=== PATIENT | female | born 1985 | race Caucasian/White ===

== ENCOUNTER 2016-07-06 15:05 | Emergency (ER) | payer SELFPAY ==
[~2016-07-06] VITALS: Ht 157.5 cm; Wt 81.6 kg
[2016-07-06] MEDS ORDERED: ACETAMINOPHEN ES 500 MG TABLET PO ONE (15:30)
[2016-07-06] MEDS ORDERED: ACETAMINOPHEN ES 500 MG TABLET ONE (15:40)
--- NOTE | 2016-07-06 16:03 | NUR ---
Patient discharged to home in stable conditon. Written and verbal after care instructions given. Patient verbalizes understanding of instructions. No further questions or concerns noted prior on leaving the ED
[2016-07-06 16:04] VITALS: BP 110/72
== END 2016-07-06 16:05 | disposition home or self-care (01) ==
LOC: ER 15:05
DX: J06.9 Acute upper respiratory infection, unspecified (principal)
CPT/HCPCS: 99282; A4663

== ENCOUNTER 2017-10-03 21:18 | Emergency (ER) | payer SELFPAY ==
[~2017-10-03] VITALS: Ht 160 cm; Wt 83.9 kg
[2017-10-03] MEDS ORDERED: WEIGHT LOSS MED (21:34)
[2017-10-03] MEDS ORDERED: ONDANSETRON 4 MG/2 ML VIAL IV ONE (21:45)
[2017-10-03] MEDS ORDERED: KETOROLAC TROMETHAMINE 30 MG INJ IVP ONE (21:45)
[2017-10-03] MEDS ORDERED: HYDROMORPHONE 1 MG/1 ML DISP.SYRIN IV ONE (21:45)
[2017-10-03] MEDS ORDERED: KETOROLAC TROMETHAMINE 30 MG INJ ONE (22:07)
[2017-10-03] MEDS ORDERED: HYDROMORPHONE 2 MG/1 ML DISP.SYRIN ONE (22:07)
[2017-10-03] MEDS ORDERED: ONDANSETRON 4 MG/2 ML VIAL ONE (22:08)
[2017-10-03 22:13] LABS: BASOPHILS # (AUTO) 0.1 K/uL (0.0-8.0); BASOPHILS % (AUTO) 0.5 % (0.0-2.0); EOSINOPHILS # (AUTO) 0.2 K/uL (0.0-0.7); EOSINOPHILS % (AUTO) 1.8 % (0.0-7.0); HEMATOCRIT 40.8 % (31.2-41.9); HEMOGLOBIN 14.2 g/dL (10.9-14.3); LYMPHOCYTES # (AUTO) 2.1 K/uL (20.0-40.0); MEAN CORPUSCULAR HEMOGLOBIN 30.7 uug (24.7-32.8); MEAN CORPUSCULAR HGB CONC 35 g/dL (32.3-35.6); MEAN CORPUSCULAR VOLUME 88.2 fL (75.5-95.3); MONOCYTES # (AUTO) 0.5 K/uL (2.0-10.0); MONOCYTES % (AUTO) 4.3 % (0.0-11.0); NEUTROPHILS # (AUTO) 8.1 K/uL (1.8-8.9); NEUTROPHILS % (AUTO) 74.4 % (38.5-71.5); PLATELET COUNT (AUTO) 322 K/uL (179-408); RED BLOOD CELL COUNT(AUTO) 4.62 MIL/uL (3.63-4.92); WHITE BLOOD COUNT (AUTO) 10.9 K/uL (3.8-11.8)
[2017-10-03 22:20] LABS: CREATININE 0.9 mg/dL (0.6-1.3); POTASSIUM 3.3 mmol/L (3.5-5.1)
[2017-10-03 22:26] LABS: BILIRUBIN,DIRECT 0.1 mg/dL (0.0-0.2); BILIRUBIN,TOTAL 0.6 mg/dL (0.2-1.0); TOTAL PROTEIN, SERUM 8.6 g/dL (6.4-8.2)
--- NOTE | 2017-10-03 23:10 | NUR ---
IV removed. Catheter intact and site benign. Pressure and 4x4 gauze applied to site. No bleeding noted.
--- NOTE | 2017-10-03 23:13 | NUR ---
Patient discharged to home in stable conditon. Written and verbal after care instructions given. Patient verbalizes understanding of instructions. Pt ambulated out of ER in steady gait. All belongings with pt. VSS. NAD noted. Pt has family members to drive her home.
[2017-10-03 23:15] VITALS: BP 114/74
== END 2017-10-03 23:16 | disposition home or self-care (01) ==
LOC: ER 21:19
DX: G89.4 Chronic pain syndrome (principal); M54.6 Pain in thoracic spine
CPT/HCPCS: 36415; 71045; 83690; 84703; 85025; 85730; 93005; A4663; J1170; J1885; J2405

== ENCOUNTER 2019-04-30 12:53 | Emergency (ER) | payer MEDICAID, OTHER ==
[~2019-04-30] VITALS: Ht 160 cm; Wt 81.6 kg
[~2019-04-30 12:53] MED LIST: WEIGHT LOSS MED
[2019-04-30] MEDS ORDERED: KETOROLAC TROMETHAMINE 30 MG INJ ONE (13:28)
[2019-04-30] MEDS ORDERED: KETOROLAC TROMETHAMINE 30 MG INJ IM ONE (13:30)
--- NOTE | 2019-04-30 13:43 | NUR ---
PT WAS EVALUATED BY DR DOUGLAS. PT WAS D/C'd TO HOME D/C INSTRUCTIONS GIVEN TO THE PT.
[2019-04-30 13:45] VITALS: BP 136/77
== END 2019-04-30 13:46 | disposition home or self-care (01) ==
LOC: ER 12:53
DX: M54.9 Dorsalgia, unspecified (principal)
CPT/HCPCS: 96372; 99283; J1885; A4663

== ENCOUNTER 2020-03-17 13:56 | Emergency (ER) | payer MEDICAID, OTHER ==
[~2020-03-17] VITALS: Ht 160 cm; Wt 80.7 kg
[2020-03-17] MEDS ORDERED: KETOROLAC TROMETHAMINE 15 MG INJ IVP ONE (14:30)
[2020-03-17] MEDS ORDERED: PANTOPRAZOLE SODIUM 40 MG VIAL IV ONE (14:30)
[2020-03-17] MEDS ORDERED: PANTOPRAZOLE SODIUM 40 MG VIAL ONE (14:39)
[2020-03-17] MEDS ORDERED: KETOROLAC TROMETHAMINE 30 MG INJ ONE (14:39)
[2020-03-17 15:00] LABS: CREATININE 0.7 mg/dL (0.6-1.3)
[2020-03-17 15:03] LABS: BASOPHILS % (AUTO) 0.6 % (0.0-2.0); EOSINOPHILS # (AUTO) 0.4 K/uL (0.0-0.7); EOSINOPHILS % (AUTO) 4.7 % (0.0-7.0); HEMOGLOBIN 14.3 g/dL (10.9-14.3); LYMPHOCYTES # (AUTO) 2.1 K/uL (20.0-40.0); LYMPHOCYTES % (AUTO) 26.3 % (20.5-51.5); MEAN CORPUSCULAR HEMOGLOBIN 29.5 uug (24.7-32.8); MEAN CORPUSCULAR HGB CONC 33 g/dL (32.3-35.6); MEAN CORPUSCULAR VOLUME 88.5 fL (75.5-95.3); MONOCYTES # (AUTO) 0.4 K/uL (2.0-10.0); MONOCYTES % (AUTO) 5.6 % (0.0-11.0); NEUTROPHILS % (AUTO) 62.8 % (38.5-71.5); PLATELET COUNT (AUTO) 315 K/uL (179-408); RED BLOOD CELL COUNT(AUTO) 4.86 MIL/uL (3.63-4.92)
[2020-03-17] MEDS ORDERED: HYDROCODONE/APAP 5-325MG TABLET ONE (15:44)
[2020-03-17] MEDS ORDERED: HYDROCODONE/APAP 5-325MG TABLET PO ONE (15:45)
--- NOTE | 2020-03-17 15:51 | NUR ---
Removed IV intact, site okay, bandaged. Gave pt RX and d/c instructions, pt verbalized understanding.
== END 2020-03-17 15:54 | disposition home or self-care (01) ==
LOC: ER 14:08
DX: R07.1 Chest pain on breathing (principal); M54.12 Radiculopathy, cervical region; R00.0 Tachycardia, unspecified; F17.200 Nicotine dependence, unspecified, uncomplicated; G89.4 Chronic pain syndrome
CPT/HCPCS: 36415; 71045; 80048; 84484; 84702; 85025; 85379; 93005; 96374; 96375; 99285; C9113; J1885; 70030-TC; A4663

== ENCOUNTER 2021-12-16 12:05 | Emergency (ER) | payer OTHER ==
[~2021-12-16] VITALS: Ht 160 cm; Wt 83.9 kg
[2021-12-16] MEDS ORDERED: METOCLOPRAMIDE HCL 10 MG/2 ML VIAL IV ONE (12:45)
[2021-12-16] MEDS ORDERED: ACETAMINOPHEN 325 MG TABLET PO ONE (12:45)
[2021-12-16 13:01] LABS: HEMATOCRIT 36.2 % (31.2-41.9); MEAN CORPUSCULAR HEMOGLOBIN 29.8 uug (24.7-32.8); MEAN CORPUSCULAR VOLUME 86.3 fL (75.5-95.3); PLATELET COUNT (AUTO) 307 K/uL (179-408)
[2021-12-16 13:11] LABS: CARBON DIOXIDE 27 mmol/L (21-32); CHLORIDE 104 mmol/L (98-107); CREATININE 0.7 mg/dL (0.6-1.3); GLUCOSE 94 mg/dL (74-106); POTASSIUM 4.2 mmol/L (3.5-5.1); UREA NITROGEN, BLOOD 7 mg/dL (7-18)
[2021-12-16] MEDS ORDERED: METOCLOPRAMIDE HCL 10 MG/2 ML VIAL ONE (13:27)
[2021-12-16] MEDS ORDERED: ACETAMINOPHEN 325 MG TABLET ONE (13:27)
[2021-12-16] MEDS ORDERED: METOCLOPRAMIDE HCL 10 MG TABLET ONE (13:36)
[2021-12-16] MEDS ORDERED: ACET-2154 PO ×2 (13:44→14:11)
[2021-12-16] MEDS ORDERED: HYDR25CA PO ×2 (13:44→14:11)
[2021-12-16] MEDS ORDERED: METOCLOPRAMIDE HCL 10 MG TABLET PO ONE (13:45)
--- NOTE | 2021-12-16 13:45 | NUR ---
Administered 650 Tylenol (prior to order cancellation) and 10 mg Reglan PO.
[2021-12-16] MEDS ORDERED: DEXAMETHASONE SOD PHOSPHATE 4 MG INJ IM ONE (14:15)
[2021-12-16] MEDS ORDERED: LIDOCAINE 5% PATCH TD ONE ×2 (14:15→14:28)
[2021-12-16 14:23] LABS: *URINE HCG, QUAL NEGATIVE (NEGATIVE)
[2021-12-16] MEDS ORDERED: KETOROLAC TROMETHAMINE 30 MG INJ ONE (14:28)
[2021-12-16] MEDS ORDERED: DEXAMETHASONE SOD PHOSPHATE 4 MG INJ ONE (14:28)
[2021-12-16 14:50] VITALS: BP 105/49
== END 2021-12-16 14:54 | disposition home or self-care (01) ==
LOC: ER 12:05
DX: R20.2 Paresthesia of skin (principal); M79.642 Pain in left hand; M79.641 Pain in right hand; F41.9 Anxiety disorder, unspecified; R07.89 Other chest pain; G89.4 Chronic pain syndrome; Z88.6 Allergy status to analgesic agent; R94.31 Abnormal electrocardiogram [ECG] [EKG]
CPT/HCPCS: 99285; 71045; 80048; 84703; 85025; 84484; 36415; 93005; 96372; J1100; J2765; A4663; J1885; J8597

== ENCOUNTER 2021-12-25 23:36 | Emergency (ER) | payer OTHER ==
[~2021-12-25] VITALS: Ht 160 cm; Wt 81.6 kg
[~2021-12-25 23:36] MED LIST changes: +ACET-2154 PO; +HYDR25CA PO
--- NOTE | 2021-12-26 | NUR ---
Dr. Oquendo at bedside. MSE in progress.
[2021-12-26 00:37] LABS: MEAN CORPUSCULAR HEMOGLOBIN 29.5 uug (24.7-32.8); MEAN CORPUSCULAR VOLUME 87.5 fL (75.5-95.3); PLATELET COUNT (AUTO) 361 K/uL (179-408)
[2021-12-26 00:46] LABS: CARBON DIOXIDE 29 mmol/L (21-32); CHLORIDE 103 mmol/L (98-107); CREATININE 0.8 mg/dL (0.6-1.3); GLUCOSE 113 mg/dL (74-106); POTASSIUM 4.1 mmol/L (3.5-5.1); UREA NITROGEN, BLOOD 10 mg/dL (7-18)
[2021-12-26 00:58] LABS: ALANINE AMINOTRANSFERASE 53 U/L (14-59); ALKALINE PHOSPHATASE 82 U/L (50-136); ASPARTATE AMINOTRANSFERASE 28 U/L (15-37); BILIRUBIN,DIRECT 0.1 mg/dL (0.0-0.2); BILIRUBIN,TOTAL 0.4 mg/dL (0.2-1.0); TOTAL PROTEIN, SERUM 7.9 g/dL (6.4-8.2)
[2021-12-26 00:59] LABS: THYROID STIMULATING HORMONE 0.699 mIU/mL (0.358-3.740)
--- NOTE | 2021-12-26 02:15 | NUR ---
Patient discharged to home in stable condition. A/O x4. NAD noted. Ambulatory with steady gait. All belongins with patient. Written and verbal after care instructions given. Patient verbalizes understanding of instructions. Stressed follow up or return to ER for worsening s/s.
[2021-12-26 02:20] VITALS: BP 129/76
== END 2021-12-26 02:15 | disposition home or self-care (01) ==
LOC: ER 23:43
DX: R00.2 Palpitations (principal); G89.4 Chronic pain syndrome; E66.9 Obesity, unspecified; Z68.31 Body mass index [BMI] 31.0-31.9, adult
CPT/HCPCS: 36415; 83735; 84443; 84484; 85025; 93005; A4663

== ENCOUNTER 2023-08-29 21:38 | Emergency (ER) | payer OTHER ==
[~2023-08-29] VITALS: Ht 160 cm; Wt 88.5 kg
[~2023-08-29 21:38] MED LIST changes: +GABA-532 PO; +NITR100C6 PO
[2023-08-29] MEDS ORDERED: ACETAMINOPHEN 500 MG TABLET ONE (22:21)
[2023-08-29] MEDS ORDERED: DIAZEPAM 5 MG TABLET ONE (22:22)
[2023-08-29] MEDS: DIAZEPAM 2 MG TABLET PO ONE (22:24)
[2023-08-29] MEDS: ACETAMINOPHEN 325 MG TABLET PO ONE (22:28)
[2023-08-29] MEDS ORDERED: LIDOCAINE 5% PATCH TD ONE (22:29)
[2023-08-29] MEDS: LIDOCAINE 5% PATCH TD ONE (22:33)
[2023-08-29] MEDS: KETOROLAC TROMETHAMINE 30 MG INJ IM ONE (23:20)
[2023-08-29 23:22] VITALS: BP 125/50; TEMP 98.6; O2SAT 99
== END 2023-08-29 23:24 | disposition left against medical advice (07) ==
LOC: ER 21:47
DX: M54.50 Low back pain, unspecified (principal); F17.210 Nicotine dependence, cigarettes, uncomplicated; Z88.8 Allergy status to other drugs, medicaments and biological substances; Z79.899 Other long term (current) drug therapy
CPT/HCPCS: A4606; A4663; A9150

== ENCOUNTER 2024-03-27 15:45 | Emergency (ER) | payer OTHER | END 2024-03-27 18:34 | disposition left against medical advice (07) | LOC: ER 15:45 | DX: R10.9 Unspecified abdominal pain (principal); Z53.21 Procedure and treatment not carried out due to patient leaving prior to being seen by health care provider ==